=== PATIENT | female | born 1965 | race African-American/Black ===

== ENCOUNTER 2019-02-07 22:54 | Inpatient (IN) ==
[2019-02-08 00:30] LABS: Basophils % 0.4 % (0.0-0.8); Eosinophils # 0.2 10*3/uL (0.0-0.87); Hematocrit 44.1 VOL% (35.7-47.0); Hemoglobin 14.1 GM/DL (12.0-16.0); Immature Granulocytes % 0.1 %; Immature Granulocytes Absolute 0.01 #; Lymphocytes % 39.4 % (21.3-54.2); Mean Corpuscular Volume 92.6 FL (87-102); Mean Platelet Volume 10.3 FL (9.6-12.0); Neutrophils % 49.1 % (38.7-73.9); Platelet Count 191 T/CUMM (130-400); Red Blood Count 4.76 MC/CUMM (3.8-5.5); Red Cell Distribution Width 13.2 % (9.3-17.3); White Blood Count 7.6 T/CUMM (4-12)
[2019-02-08 00:53] LABS: Alanine Aminotransferase 21 U/L (13-56); Albumin 3.7 G/DL (3.4-5.0); Alkaline Phosphatase 174 U/L (45-117); Aspartate Amino Transferase 15 U/L (0-37); Bilirubin,Total < 0.39 MG/DL (0.2-1.0); Blood Urea Nitrogen 10 MG/DL (7-18); Calcium 9.2 MG/DL (8.5-10.1); Estimated Glom Filtration Rate 59 ML/MIN; Glucose 111 MG/DL (74-106); Total Protein 8.3 G/DL (6.4-8.3)
[2019-02-08] MEDS ORDERED: NITROGLYCERIN SL 0.4 MG TABLET SL STA (01:13)
[2019-02-08] MEDS ORDERED: ASPIRIN 325 MG TABLET PO STA (01:13)
[2019-02-08] MEDS ORDERED: ENOXAPARIN 30 MG/0.3 ML SYRINGE SUBCUT STA (01:24)
[2019-02-08] MEDS ORDERED: MORPHINE 4 MG/1 ML VIAL IV PRN (02:50)
[2019-02-08] MEDS ORDERED: guaiFENesin/DM ER 600-30 MG TABLET PO PRN (02:50)
[2019-02-08] MEDS ORDERED: ACETAMINOPHEN 325 MG TABLET PO PRN (02:50)
[2019-02-08] MEDS ORDERED: ONDANSETRON 4 MG/2 ML VIAL IV PRN (02:50)
[2019-02-08] MEDS ORDERED: diphenhydrAMINE CAP 25 MG CAPSULE PO PRN (02:50)
[2019-02-08] MEDS ORDERED: traZODone 50 MG TABLET PO PRN (02:50)
[2019-02-08] MEDS ORDERED: BISACODYL 5 MG TABLET PO PRN (02:50)
[2019-02-08] MEDS ORDERED: NICOTINE 21 MG/24 HR PATCH TRANSDERM PRN (02:50)
[2019-02-08] MEDS ORDERED: ENOXAPARIN 100 MG/ML SYRINGE SUBCUT SCH (05:00)
[2019-02-08] MEDS: BUDESONIDE/FORMOTEROL 160-4.5 INHALER 6 GM INH SCH ×2 (09:57→22:07)
[2019-02-08] MEDS ORDERED: APIXABAN 5 MG TABLET PO SCH (12:00)
[2019-02-08] MEDS ORDERED: APIXABAN 5 MG TABLET PO ONE (13:25)
[2019-02-08] MEDS ORDERED: NORTRIPTYLINE 25 MG CAPSULE PO SCH (21:00)
[2019-02-08] MEDS ORDERED: MELATONIN 3 MG TABLET PO PRN (21:20)
[2019-02-08] MEDS: APIXABAN 5 MG TABLET PO SCH (22:07)
[2019-02-09 06:43] LABS: Basophils % 0.4 % (0.0-0.8); Eosinophils # 0.2 10*3/uL (0.0-0.87); Hematocrit 45.1 VOL% (35.7-47.0); Immature Granulocytes % 0.3 %; Immature Granulocytes Absolute 0.02 #; Lymphocytes # 2.7 10*3/uL (1.4-4.0); Lymphocytes % 35.8 % (21.3-54.2); Mean Platelet Volume 10.2 FL (9.6-12.0); Monocytes % 8.1 % (1.7-12.7); Neutrophils % 53.4 % (38.7-73.9); Platelet Count 175 T/CUMM (130-400); Red Blood Count 4.85 MC/CUMM (3.8-5.5); Red Cell Distribution Width 13.2 % (9.3-17.3); White Blood Count 7.5 T/CUMM (4-12)
[2019-02-09 07:05] LABS: Osmolality,Calculated 283.1 MOS/KG (273-304)
[2019-02-09] MEDS: APIXABAN 5 MG TABLET PO SCH (08:34)
[2019-02-09] MEDS: BUDESONIDE/FORMOTEROL 160-4.5 INHALER 6 GM INH SCH (08:35)
[2019-02-09 11:57] VITALS: BP 124/81
[2019-02-15] MEDS ORDERED: APIXABAN 5 MG TABLET PO SCH ×2 (09:00→21:00)
== END 2019-02-09 12:51 | disposition home or self-care (01) | DRG 176 ==
LOC: N.ED 22:54 → SUATTDRO 02-08 02:50 → N.EDINP 02-08 02:50 → N.TELEN 02-08 04:49
PROVIDERS: ADMIT Internal Medicine; ATTEND Hospitalist